=== PATIENT | female | born 1955 | race Caucasian/White ===

== ENCOUNTER 2018-07-06 06:10 | Day surgery (SDC) | payer OTHER ==
[~2018-07-06 06:10] MED LIST: [UNRECOGNIZED DRUG - OTHER] PO
[2018-07-06] MEDS ORDERED: NAPROXEN SODIU550 MG PO (12:00)
== END 2018-07-06 14:05 | disposition home or self-care (01) ==
LOC: CIR.AMB 06:10
DX: C54.1 Malignant neoplasm of endometrium (principal)